=== PATIENT | male | born 2000 | race Hispanic/Latino ===

== ENCOUNTER 2022-03-29 13:17 | Emergency (ER) | payer OTHER ==
[2022-03-29] VITALS (15 sets, daily range): BP systolic 126–173; BP diastolic 49–96
[~2022-03-29] VITALS: Ht 188 cm; Wt 141.2 kg
[~2022-03-29 13:17] MED LIST: NO HOMEMEDS
[2022-03-29] MEDS ORDERED: PROMETHAZINE HY25 M1 PO (15:04)
[2022-03-29] MEDS ORDERED: PAXLOVID PO (15:04)
== END 2022-03-29 15:53 | disposition home or self-care (01) ==
LOC: ED 13:17
DX: U07.1 COVID-19 (principal); R51.9 Headache, unspecified; R05.9 Cough, unspecified